=== PATIENT | female | born 2000 | race Hispanic/Latino ===

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

== ENCOUNTER 2022-04-17 10:06 | Emergency (ER) | payer OTHER ==
[~2022-04-17] VITALS: Ht 157.5 cm; Wt 72.6 kg
[~2022-04-17 10:06] MED LIST changes: +KEFLEX125 MG/5 M PO; +MAGNESIUM CITR296 ML PO; +ONDANSETRON ODT4 MG PO
[2022-04-17] MEDS ORDERED: KETOROLAC TROMETHAMINE 60 MG/2 ML VIAL IM ONE (10:45)
[2022-04-17] MEDS ORDERED: IBUPROFEN 600 MG TAB PO STA ×2 (13:23)
[2022-04-17] MEDS ORDERED: NAPROSYN500 MG PO (13:32)
[2022-04-17] MEDS ORDERED: METHOCARBAMOL500 MG PO (13:32)
== END 2022-04-17 14:24 | disposition home or self-care (01) ==
LOC: ER 10:11
DX: S43.492A Other sprain of left shoulder joint, initial encounter (principal); V43.62XA Car passenger injured in collision with other type car in traffic accident, initial encounter; Y92.488 Other paved roadways as the place of occurrence of the external cause; F41.9 Anxiety disorder, unspecified; L30.9 Dermatitis, unspecified; F17.290 Nicotine dependence, other tobacco product, uncomplicated
CPT/HCPCS: 73030; 99283; J1885

== ENCOUNTER 2023-01-29 13:56 | Emergency (ER) | payer OTHER ==
[~2023-01-29] VITALS: Ht 157.5 cm; Wt 72.6 kg
[~2023-01-29 13:56] MED LIST changes: +METHOCARBAMOL500 MG PO; +NAPROSYN500 MG PO
[2023-01-29 15:16] VITALS: O2SAT 100
== END 2023-01-29 16:04 | disposition home or self-care (01) ==
LOC: ER 14:45
DX: K59.00 Constipation, unspecified (principal); F41.9 Anxiety disorder, unspecified; L30.9 Dermatitis, unspecified
CPT/HCPCS: 99282